=== PATIENT | male | born 1935 | race Caucasian/White ===

== ENCOUNTER 2016-05-13 12:52 | Emergency (ER) | payer OTHER ==
[2016-05-13] VITALS (9 sets, daily range): BP systolic 119–168; BP diastolic 56–86; PULSE 71–86; RESP 12–20; TEMP 98.2–99.1; O2SAT 97–99
[~2016-05-13] VITALS: Ht 157.5 cm; Wt 85.0 kg
[~2016-05-13 12:52] MED LIST: DILA2TAB2 PO; FURO40TA PO
[2016-05-13] MEDS ORDERED: SPIR50TA PO (14:11)
[2016-05-13] MEDS ORDERED: SENN1TAB PO (14:11)
[2016-05-13] MEDS ORDERED: DILA2TAB2 PO (14:11)
[2016-05-13] MEDS ORDERED: FURO1TAB60 PO (14:11)
[2016-05-13] MEDS ORDERED: OMEP20TA PO (14:11)
[2016-05-13] MEDS ORDERED: METH5TAB PO (14:11)
[2016-05-13 14:16] LABS: AUTOMATED NEUTROPHIL # 5.6 TH/MM3 (1.8-7.7); BASOPHIL # 0.1 TH/MM3 (0-0.2); BASOPHIL % 1.3 % (0.0-2.0); EOSINOPHIL # 0.2 TH/MM3 (0-0.4); LYMPH % 20.4 % (9.0-44.0); LYMPHOCYTE # 1.8 TH/MM3 (1.0-4.8); MEAN CELL VOLUME 88.5 FL (80.0-100.0); MEAN CORPUSCULAR HEMOGLOBIN 28.9 PG (27.0-34.0); MEAN CORPUSCULAR HGB CONC 32.7 % (32.0-36.0); MONO % 11.2 % (0.0-8.0); NEUT % 65.1 % (16.0-70.0); PLATELET COUNT 297 TH/MM3 (150-450); RED BLOOD COUNT 2.23 MIL/MM3 (4.50-5.90); RED CELL DISTRIBUTION WIDTH 15.7 % (11.6-17.2); WHITE BLOOD COUNT 8.7 TH/MM3 (4.0-11.0)
[2016-05-13 14:20] LABS: HEMO FLAGS DIFF FINAL
[2016-05-13 14:24] LABS: HEMATOCRIT 19.7 % (39.0-51.0)
[2016-05-13] MEDS ORDERED: SODIUM CHLOR 0.9% 250 ML INJ 250 ML IV ONE (14:30)
[2016-05-13 14:42] LABS: ALKALINE PHOSPHATASE 307 U/L (45-117); ALT (GPT) 19 U/L (12-78); ANION GAP 9 MEQ/L (5-15); AST (GOT) 39 U/L (15-37); BICARBONATE 26.9 MEQ/L (21.0-32.0); BLOOD UREA NITROGEN 48 MG/DL (7-18); CHLORIDE 99 MEQ/L (98-107); GLOMERULAR FILTRATION RATE 58 ML/MIN (>89); SODIUM (NA) 135 MEQ/L (136-145); TOTAL BILIRUBIN ADULT 0.6 MG/DL (0.2-1.0)
--- NOTE | 2016-05-13 19:25 | PD ---
HPI Chief Complaint: GI Complaint Time Seen by Provider: 14:02 Travel History International Travel<30 days: No Contact w/Intl Traveler<30days: No Traveled to known affect area: No History of Present Illness HPI An 80-year-old man who presents to the emergency department complaining of anemia. 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 He had hemoglobin drawn at 6.4, is been having fatigue, feeling cold, and weak. They spoke to the hospitalist, who recommended they come the emergency department for blood transfusion. No chest pain. No shortness of breath. No passing out. History Past Medical History Narrative Medical Cirrhosis, pedis adenocarcinoma, varices Anemia Diabetes Hypertension Tetanus Vaccination: > 5 Years Social History Alcohol Use: No Tobacco Use: No Allergies-Medications (Allergen,Severity, Reaction): Coded Allergies: Adhesives (Verified Allergy, Severe, PLASTIC TAPE, ITCHING, SKIN TEARS, ) PLASTIC TAPE Reported Meds & Prescriptions Reported Meds & Active Scripts Active Reported Dilaudid (Hydromorphone HCl) 2 Mg Tab 2 Mg PO Q4H PRN Omeprazole 20 Mg Tab 20 Mg PO DAILY Spironolactone 50 Mg Tab 50 Mg PO DAILY Lasix (Furosemide) 40 Mg Tab 40 Mg PO DAILY Senna-Plus (Sennosides-Docusate Sodium) 8.6-50 Mg Tab 2 Tab PO DAILY Methadone (Methadone HCl) 5 Mg Tab 5 Mg PO Q8HR Review of Systems Except as stated in HPI: all other systems reviewed are Neg Physical Exam Narrative GENERAL: 80-year-old man, no acute distress. SKIN: Warm and dry. Slight pallor. HEAD: Atraumatic. Normocephalic. EYES: Pupils equal and round. No scleral icterus. No injection or drainage. CARDIOVASCULAR: Regular rate and rhythm. No murmur appreciated. RESPIRATORY: No accessory muscle use. Clear to auscultation. Breath sounds equal bilaterally. GASTROINTESTINAL: Abdomen soft, non-tender, nondistended. Hepatic and splenic margins not palpable. MUSCULOSKELETAL: No obvious deformities. Data Data Last Documented VS Vital Signs Date Time Temp Pulse Resp B/P Pulse Ox O2 Delivery O2 Flow Rate FiO2 05/13/16 18:54 98.9 76 20 152/77 97 Nasal Cannula 1 Orders Complete Blood Count With Diff (05/13/16 14:02) Comprehensive Metabolic Panel (05/13/16 14:02) Type And Screen (05/13/16 14:02) Red Blood Cells (Rbc) (05/13/16 14:24) Blood Product Administration .UPON TRANSFUSION (05/13/16 14:24) Sodium Chlor 0.9% 250 Ml Inj (Ns 250 Ml (05/13/16 14:30) Labs Laboratory Tests Test 05/13/16 05/13/16 14:00 14:24 White Blood Count 8.7 TH/MM3 Red Blood Count 2.23 MIL/MM3 Hemoglobin 6.4 GM/DL Hematocrit 19.7 % Mean Corpuscular Volume 88.5 FL Mean Corpuscular Hemoglobin 28.9 PG Mean Corpuscular Hemoglobin 32.7 % Concent Red Cell Distribution Width 15.7 % Platelet Count 297 TH/MM3 Mean Platelet Volume 7.9 FL Neutrophils (%) (Auto) 65.1 % Lymphocytes (%) (Auto) 20.4 % Monocytes (%) (Auto) 11.2 % Eosinophils (%) (Auto) 2.0 % Basophils (%) (Auto) 1.3 % Neutrophils # (Auto) 5.6 TH/MM3 Lymphocytes # (Auto) 1.8 TH/MM3 Monocytes # (Auto) 1.0 TH/MM3 Eosinophils # (Auto) 0.2 TH/MM3 Basophils # (Auto) 0.1 TH/MM3 CBC Comment DIFF FINAL Differential Comment Sodium Level 135 MEQ/L Potassium Level 5.0 MEQ/L Chloride Level 99 MEQ/L Carbon Dioxide Level 26.9 MEQ/L Anion Gap 9 MEQ/L Blood Urea Nitrogen 48 MG/DL Creatinine 1.21 MG/DL Estimat Glomerular Filtration 58 ML/MIN Rate Random Glucose 196 MG/DL Calcium Level 8.1 MG/DL Total Bilirubin 0.6 MG/DL Aspartate Amino Transf 39 U/L (AST/SGOT) Alanine Aminotransferase 19 U/L (ALT/SGPT) Alkaline Phosphatase 307 U/L Total Protein 6.7 GM/DL Albumin 2.2 GM/DL Blood Type O NEGATIVE Antibody Screen NEGATIVE Crossmatch Leukocyte-Reduced Red Blood Cells Blood Bank Comment [facility] Medical Decision Making Medical Screen Exam Complete: Yes Emergency Medical Condition: Yes Interpretation(s) LABS: CBC remarkable for hemoglobin 6.4 CMP, elevated alkaline phosphatase, glucose 196 Differential Diagnosis Anemia, GI bleed, liver failure, other Narrative Course Medical decision making 80-year-old man, on hospice for hepatocellular carcinoma, presents with anemia. We'll plan on transfusion. No further evaluation for anemia or bleeding. Diagnosis Primary Impression: Anemia Qualified Code: D64.9 - Anemia, unspecified type Additional Instructions: Follow-up with hospice as planned. Return to the emergency department for any new or worsening symptoms. Med/Other Pt SpecificInfo: No Change to Meds Disposition: 01 DISCHARGE HOME Condition: Stable Mele Mckeon MD May 13, 2016 19:25
== END 2016-05-13 19:51 | disposition home or self-care (01) ==
LOC: NEPE 12:52
DX: D64.9 Anemia, unspecified (principal); R74.8 Abnormal levels of other serum enzymes; C22.0 Liver cell carcinoma; I10 Essential (primary) hypertension; K74.60 Unspecified cirrhosis of liver
CPT/HCPCS: 36430; 80053; 85025; 86850; 86900; 86901; 86920; 99284; J7050; P9016

== ENCOUNTER → 2016-07-23 | Outpatient (CLI) | payer OTHER ==
[~2016-07-23] MED LIST changes: +FURO1TAB60 PO; -FURO40TA PO; +METH5TAB PO; +OMEP20TA PO; +SENN1TAB PO; +SPIR50TA PO
[2016-07-23 08:37] LABS: HEMATOCRIT 27.7 % (39.0-51.0); MEAN CELL VOLUME 80.7 FL (80.0-100.0); MEAN CORPUSCULAR HGB CONC 32.3 % (32.0-36.0); PLATELET COUNT 271 TH/MM3 (150-450); RED BLOOD COUNT 3.43 MIL/MM3 (4.50-5.90); RED CELL DISTRIBUTION WIDTH 20.6 % (11.6-17.2); REVIEW FLAG FINAL; WHITE BLOOD COUNT 9.7 TH/MM3 (4.0-11.0)
[2016-07-23 09:10] LABS: ALKALINE PHOSPHATASE 297 U/L (45-117); ALT (GPT) 20 U/L (12-78); ANION GAP 6 MEQ/L (5-15); AST (GOT) 32 U/L (15-37); BICARBONATE 26.5 MEQ/L (21.0-32.0); BLOOD UREA NITROGEN 39 MG/DL (7-18); CHLORIDE 104 MEQ/L (98-107); GLOMERULAR FILTRATION RATE 73 ML/MIN (>89); GLUCOSE,FASTING 144 MG/DL (74-99); HDL CHOLESTEROL 19.9 MG/DL (40.0-60.0); LDL CHOLESTEROL 57 MG/DL (0-99); POTASSIUM 4.9 MEQ/L (3.5-5.1); SODIUM (NA) 136 MEQ/L (136-145); TOTAL BILIRUBIN ADULT 0.6 MG/DL (0.2-1.0)
[2016-07-23 15:48] LABS: HEMOGLOBIN A1b 0.9 %; HEMOGLOBIN Ao 83.6 %; HEMOGLOBIN LA1C 2.3 %; HEMOGLOBIN P3 5.9 %
== END ==
LOC: CLAB 08:14
PROVIDERS: ATTEND Family Medicine
DX: C22.0 Liver cell carcinoma (principal); K76.9 Liver disease, unspecified; R60.9 Edema, unspecified; E11.649 Type 2 diabetes mellitus with hypoglycemia without coma; Z68.38 Body mass index [BMI] 38.0-38.9, adult
CPT/HCPCS: 36415; 80053; 80061; 82140; 83036; 84443; 85027